=== PATIENT | female | born 1955 | race African-American/Black ===

== ENCOUNTER 2017-04-04 09:04 | Day surgery (SDC) | payer OTHER ==
[2016-10-03 15:53] VITALS: BMI 35.4
[2017-03-29 16:37] VITALS: BMI 34.4
[2017-04-04] VITALS (10 sets, daily range): BP systolic 134–151; BP diastolic 48–72; PULSE 68–72; RESP 9–16; Ht 353.3 cm; Wt 79.1 kg
[~2017-04-04] VITALS: Ht 353.3 cm; Wt 79.1 kg
[~2017-04-04 09:04] MED LIST: AMLO-147 PO; ASPI-676 PO; CALC500T12 PO; CARV25TA79 PO; CLON0.2T12 PO; FLUT9.9S NS; INSU100C5 SC; LEVO500T72 PO; NAPR-260 PO; PRAV10TA43 PO; VALS320T11 PO
[2017-04-04] MEDS ORDERED: INSU100C SQ (10:05)
[2017-04-04] MEDS ORDERED: LANT3I SC (10:05)
[2017-04-04] MEDS ORDERED: VALS160T20 PO (10:06)
[2017-04-04] MEDS ORDERED: CLON-379 PO (10:08)
[2017-04-04] MEDS ORDERED: CHOL100062 PO (10:09)
[2017-04-04 11:19] LABS: INR 1.02; PROTIME 13.4 Sec (12.2-14.2)
[2017-04-04] MEDS ORDERED: LIDOCAINE 1% (STERILE-PAK) 30 ML INJ ONE (11:24)
[2017-04-04] MEDS ORDERED: BUPIVACAINE 0.25% (MPF) 30 ML INJ ONE (11:24)
[2017-04-04] MEDS ORDERED: GELATIN SIZE 100 SPONGE ONE (11:24)
[2017-04-04] MEDS ORDERED: THROMBIN 5000 UNIT VIAL ONE (11:25)
[2017-04-04] MEDS ORDERED: HEPARIN 1000 UNITS/ML 10 ML INJ ONE ×2 (11:25→12:23)
[2017-04-04 11:39] LABS: PARTIAL THROMBOPLASTIN TIME 23.4 Sec (25.0-35.0)
[2017-04-04] MEDS ORDERED: MIDAZOLAM 1 MG/ML 2 ML INJ ONE (11:43)
[2017-04-04] MEDS ORDERED: ROPIVACAINE 0.5 % 30 ML VIAL ONE (11:43)
[2017-04-04] MEDS ORDERED: CEFAZOLIN 1 GM INJ ONE (11:43)
[2017-04-04] MEDS ORDERED: FENTAnyl 50 MCG/ML VIAL ONE (11:43)
[2017-04-04] MEDS ORDERED: PROPOFOL 20 ML ONE (11:43)
[2017-04-04] MEDS ORDERED: hydrALAzine 20 MG INJ ONE (12:07)
[2017-04-04] MEDS ORDERED: LABETALOL HCL 20MG INJ ONE (12:07)
[2017-04-04] MEDS ORDERED: HEPARIN 1000 UNITS/ML 10 ML INJ IRR ONE (12:11)
[2017-04-04] MEDS ORDERED: BUPIVACAINE 0.25% (MPF) 30 ML INJ INJ ONE (12:11)
[2017-04-04] MEDS ORDERED: LIDOCAINE 1% (MPF) 30 ML INJ INJ ONE (12:11)
[2017-04-04] MEDS ORDERED: POLYMYXIN/BACITRACIN 1L IRRIG IRR ONE (12:11)
[2017-04-04] MEDS ORDERED: ONDANSETRON 4 MG INJ ONE (12:23)
[2017-04-04] MEDS ORDERED: DEXAMETHASONE 4 MG/ML 1 ML INJ ONE (12:23)
[2017-04-04] MEDS ORDERED: METOCLOPRAMIDE 10 MG INJ ONE (12:23)
[2017-04-04] MEDS ORDERED: PHENYLephrine (100 MCG/ML) 5ML SYG ONE (12:28)
[2017-04-04] MEDS ORDERED: GELATIN SIZE 100 SPONGE TOP ONE (12:55)
[2017-04-04] MEDS ORDERED: LABETALOL HCL 20MG INJ IV PRN (13:30)
[2017-04-04] MEDS ORDERED: ONDANSETRON 4 MG INJ IV PRN (13:30)
[2017-04-04] MEDS ORDERED: MEPERIDINE 25 MG INJ IV PRN (13:30)
[2017-04-04] MEDS ORDERED: HYDROmorphONE (0.2 MG/ML) 10ML SYG IV PRN ×3 (13:30)
[2017-04-04] MEDS ORDERED: hydrALAzine 20 MG INJ IV PRN (13:30)
[2017-04-04] MEDS ORDERED: morphine (1 MG/ML) 10ML SYRINGE IV PRN ×3 (13:30)
[2017-04-04] MEDS ORDERED: DIPHENHYDRAMINE 50 MG INJ IV PRN (13:30)
[2017-04-04] MEDS ORDERED: EPHEDrine SULFATE 50 MG/5 ML SYG IV PRN (13:30)
--- NOTE | 2017-04-04 13:31 | OPR ---
Date/Time of Note Date/Time of Note DATE: 04/04/17 TIME: 13:29 Operative Report Preoperative Diagnosis ESRD Postoperative Diagnosis same Operation Performed HANSA MATHIS Surgeon: RUBEN CABRERA MD Anesthesia: general Estimated Blood Loss: minimal Complications: None Pt Condition Post Procedure: stable Disposition: PACU RUBEN CABRERA MD April 04, 2017 13:31
[2017-04-04] MEDS ORDERED: OXYCODONE/ACETAMINOPHEN (5/325) TAB PO PRN ×2 (15:00)
--- NOTE | 2017-04-04 20:51 | OPR ---
DATE OF OPERATION: PREOPERATIVE DIAGNOSIS: End-stage renal disease. POSTOPERATIVE DIAGNOSIS: End-stage renal disease. OPERATION PERFORMED: Right arm AV graft placement. SURGEON: Ruben Holbrook MD ANESTHESIA: General. CONSENT: Risks, benefits, complications, alternative therapies explained to the patient and [facility], consent obtained. OPERATIVE TECHNIQUE: The patient was placed in supine position, prepped and draped in usual sterile fashion. Lidocaine 1% was used throughout the operation for local anesthesia. I made a 6 cm incis ion in an oblique fashion, right anterior fossa. The patient previously had an AV fistula which was then identified. A 4 to 7 mm Amenia-Johnny graft was placed in loop fashion in the forearm through a se parate incision. The patient was given 5000 units of IV heparin. The arterial inflow was the end o f the previous fistula, and the outflow was the brachial vein. Inflow was end-to-side fashion, 6-0 Prolene in continuous suture technique, and outflow was end-to-side manner to the brachial vein, 10 mm longitudinal venotomy, 6-0 Prolene in continuous suture technique to the beveled end of the vein. The wound was irrigated and multiple layers of 3-0 Vicryl suture for the deep, 2-0 Vicryl suture f or the subcutaneous, bart for the skin. The patient tolerated procedure well. Dictated By: RUBEN YU/TRACI Conf#: [id number] DID#: [id number]
--- NOTE | 2017-04-05 20:35 | RADRPT ---
Vent Rate: 68 bpm RR Interval: 0 msec VT Interval: 250 msec QRS Duration: 82 msec QT Interval: 426 msec QTC Interval: 452 msec P-R-T [place]: 49 - 42 - 47 degrees Sinus rhythm with 1st degree AV block Otherwise normal ECG Electronically Signed By: Dima Tang [id number]
[2017-04-05] MEDS ORDERED: ACET1TAB40 PO (21:09)
== END 2017-04-04 15:20 | disposition home or self-care (01) ==
LOC: SDS 09:04
PROVIDERS: ATTEND Thoracic Surgery (Cardiothoracic Vascular Surgery)
DX: I12.0 Hypertensive chronic kidney disease with stage 5 chronic kidney disease or end stage renal disease (principal); N18.6 End stage renal disease; E11.9 Type 2 diabetes mellitus without complications; E78.5 Hyperlipidemia, unspecified; I10 Essential (primary) hypertension
CPT/HCPCS: 36830; 82962; 84132; 85610; 85730; 93005; C1725; C1768; J0360; J0690; J1100; J1644; J2250; J2370; J2405; J2765; J2795; J3010

== ENCOUNTER 2017-04-05 19:04 | Emergency (ER) | payer OTHER ==
[~2017-04-05] VITALS: Ht 162.6 cm; Wt 80.0 kg
[~2017-04-05 19:04] MED LIST changes: +CHOL100062 PO; +CLON-379 PO; -CLON0.2T12 PO; -FLUT9.9S NS; +INSU100C SQ; -INSU100C5 SC; +LANT3I SC; -LEVO500T72 PO; -NAPR-260 PO; +VALS160T20 PO; -VALS320T11 PO
[2017-04-05 19:10] VITALS: Ht 162.6 cm; Wt 80.0 kg
[2017-04-05] MEDS ORDERED: ACET1TAB40 PO (21:09)
--- NOTE | 2017-04-05 21:18 | ERD ---
ER Documentation Chief Complaint Date/Time DATE: 04/05/17 TIME: 21:12 Chief Complaint sp placement of AV shunt yesterday, c/o bleeding and swelling HPI Patient is a 61-year-old female with end-stage renal disease who presents with blood soaking through her dressing covering wound site from a AV fistula formation in the right arm performed yesterday. Patient also complains of moderate postoperative pain. Patient went to dialysis today and received dialysis through a right groin dialysis catheter. There is no bleeding until a few hours after dialysis when she was out shopping. She thinks it may have been related to movements of her right arm. She applied pressure, and that bleeding mostly stopped. She called her surgeon, and was told to come to the ER. ROS All systems reviewed and are negative except as per history of present illness. Medications Home Meds Active Scripts Acetaminophen with Codeine (Acetaminophen-Cod #3 Tablet) 1 Each Tablet, 1 TAB PO Q6H Y for PAIN, #16 TAB Prov:SUZANNA CHEN MD 04/05/17 Reported Medications Cholecalciferol* (Vitamin D3*) 1,000 Unit Tablet, 2000 UNIT PO DAILY, TAB 04/04/17 Clonidine Hcl* (Clonidine Hcl*) 0.1 Mg Tab, 0.05 MG PO DAILY Y for ELEVATED BLOOD PRESSURE, TAB 04/04/17 Valsartan* (Diovan*) 160 Mg Tablet, 160 MG PO DAILY, TAB 04/04/17 Insulin Lispro (Humalog) 100 Unit/1 Ml Cartridge, 4 UNIT SQ BID WITH MEALS 04/04/17 Insulin Glargine* (Lantus*) 100 Unit/Ml Soln, 24 UNIT SC DAILY, #1 VIAL 04/04/17 Pravastatin Sodium* (Pravastatin Sodium*) 10 Mg Tablet, PO HS 08/25/13 Calcium Carbonate* (Oysco-500*) 1 Tab Tablet, PO BID 12/01/12 Aspirin (Jessica Child) 81 Mg Chew, PO DAILY 12/01/12 Amlodipine Besylate* (Amlodipine Besylate*) 10 Mg Tablet, PO DAILY 12/01/12 Carvedilol* (Carvedilol*) 25 Mg Tablet, PO BID 12/01/12 Discontinued Reported Medications Valsartan* (Diovan*) 320 Mg Tablet, PO DAILY 08/25/13 Insulin Glargine,Hum.rec.anlog (Lantus) 100 U/Ml Cartridge, 14 U SC BID 12/01/12 Clonidine Hcl* (Catapres*) 0.2 Mg Tablet, PO BID 12/01/12 Discontinued Scripts Naproxen* (Naprosyn*) 500 Mg Tablet, 500 MG PO BID, #20 TAB Prov:VENKAT GARZA Kati 09/01/15 Fluticasone Propionate (Flonase Allergy Relief) 9.9 Ml Gove.susp, 9.9 ML NS BID for 7 Days Prov:KRISTYNSAMANTAVENKAT Kati 09/01/15 Levofloxacin* (Levaquin*) 500 Mg Tablet, 500 MG PO DAILY for 10 Days, TAB Prov:VENKAT GARZA Mil. 09/01/15 Allergies Allergies: Coded Allergies: No Known Allergy (Verified , 04/05/17) PMhx/Soc Past medical history: End-stage renal disease, hypertension, diabetes mellitus Past surgical history: Right arm AV fistula 2 Social history: Denies tobacco or alcohol History of Surgery: Yes (AICD PLACEMENT 2007, AV SHUNT R ARM 2016, L ARM SHUNT 2015) Anesthesia Reaction: No Hx Neurological Disorder: No Hx Respiratory Disorders: No Hx Cardiac Disorders: Yes (HTN) Hx Psychiatric Problems: No Hx Miscellaneous Medical Probl: No Hx Alcohol Use: No Hx Substance Use: No Hx Tobacco Use: No Smoking Status: Unknown if ever smoked FmHx Family History: No coronary disease, No diabetes Physical Exam Vitals Vital Signs Date Time Temp Pulse Resp B/P Pulse Ox O2 Delivery O2 Flow Rate FiO2 04/05/17 19:10 98.5 79 20 169/78 100 Physical Exam Const: Alert, no acute distress Head: Atraumatic Eyes: Normal Conjunctiva, no pallor ENT: Normal External Ears, Nose and Mouth. Neck: Full range of motion..~ No meningismus. No JVD Resp: Clear to auscultation bilaterally, no wheezes, no rales Cardio: Regular rate and rhythm, no murmurs Abd: Soft, non tender, non distended. Normal bowel sounds Skin: No petechiae or rashes Ext: No cyanosis, or edema. Thrill over right arm AV fistula. Compartments soft. Mild soft tissue tenderness. 2+ radial pulse. Strength and sensation intact in the hand. Dried blood on two wound dressings, not actively bleeding Neur: Awake and alert Psych: Normal Mood and Affect Procedures/MDM MDM: Patient is a 61-year-old female who has mild surgical site bleeding from formation of an AV fistula. The bleeding stopped after her dialysis today, and may be related to heparinization during dialysis versus subsequent activity involving movement of her arm. There is no evidence of active bleeding at this time, and only signs of mild oozing from the wound. There is no sign of significant subcutaneous bleeding. Patient is not taking any antiplatelet agents or blood thinners. I will apply a new dressing over the old one covered with Imtiaz bandage. Advised the patient to avoid significant movements of the right arm, and to return to the ER if there is recurrence of significant bleeding. Otherwise, I believe it is best to leave the bandage intact rather than to potentially dislodge clot and cause recurrence of bleeding. I did advise the patient to call her surgeon for follow-up wound check. Departure Diagnosis: Primary Impression: Postoperative complication Surgical complication system/body Area: circulatory system Surgical complication type: hemorrhage Procedure type: other circulatory Qualified Code: I97.618 - Postoperative hemorrhage involving circulatory system following other circulatory system procedure Condition: Stable Patient Instructions: Post Op Wound Check, Bleeding Referrals: DOCTOR,NOT ON STAFF (PCP) Additional Instructions: Return to the ER for blood that soaked through your new dressing. Return to the ER if there is any ongoing bleeding beyond 24-48 hours. Follow-up with your surgeon as scheduled for wound check. SUZANNA CHEN MD April 05, 2017 21:18
== END 2017-04-05 21:24 | disposition home or self-care (01) ==
LOC: E/R 19:04
DX: I97.618 Postprocedural hemorrhage of a circulatory system organ or structure following other circulatory system procedure (principal); I12.0 Hypertensive chronic kidney disease with stage 5 chronic kidney disease or end stage renal disease; N18.6 End stage renal disease; E11.22 Type 2 diabetes mellitus with diabetic chronic kidney disease; Y82.8 Other medical devices associated with adverse incidents; Z79.4 Long term (current) use of insulin; Z79.82 Long term (current) use of aspirin; Z99.2 Dependence on renal dialysis
CPT/HCPCS: 99283

== ENCOUNTER 2017-07-25 10:01 | Outpatient (CLI) | payer OTHER ==
[~2017-07-25] VITALS: Ht 152.4 cm; Wt 79.0 kg
[~2017-07-25 10:01] MED LIST changes: +ACET1TAB40 PO
--- NOTE | 2017-07-25 10:46 | RADRPT ---
PROCEDURE: XR Chest. CLINICAL INDICATION: Preoperative TECHNIQUE: Single frontal view of the chest was obtained. COMPARISON: Chest x-ray from 06/23/2015 FINDINGS: A left-sided dual lead pacemaker / AICD is again noted. There is stable mild cardiomegaly. The aortic arch is calcified. The lungs are clear. There is no significant pleural effusion or pneumothorax. IMPRESSION: No acute disease. Redemonstration of a left-sided pacemaker / AICD. Aortic atherosclerosis. Mild cardiomegaly. RPTAT: EE Physician Alena Date Time Electronically viewed and signed by Physician Alena on 07/25/2017 10:46 RA/
[2017-07-25 11:27] VITALS: BP 104/57; PULSE 69; RESP 18; Ht 152.4 cm; Wt 79.0 kg
[2017-07-25] MEDS ORDERED: LIDOCAINE 1% (MDV) 20 ML INJ ONE (11:56)
[2017-07-25] MEDS ORDERED: IODIXANOL LOCM 100 ML BTL ONE (11:56)
== END 2017-07-25 14:20 | disposition home or self-care (01) ==
LOC: LAB 10:01 → SDS 10:05 → EDSTATUS 12:00 → LAB 14:20 → SDS 14:20
PROVIDERS: ATTEND Thoracic Surgery (Cardiothoracic Vascular Surgery)
DX: T82.838A Hemorrhage due to vascular prosthetic devices, implants and grafts, initial encounter (principal); Y82.8 Other medical devices associated with adverse incidents; I10 Essential (primary) hypertension; E78.5 Hyperlipidemia, unspecified
CPT/HCPCS: 71010; 82962; 93005; J1644; Q9967